=== PATIENT | male | born 1955 | race Caucasian/White ===

== ENCOUNTER 2016-07-14 06:33 | Day surgery (SDC) | payer BC ==
[2016-07-14] MEDS ORDERED: KETAMINE HCL* 50 MG/ML 10 ML VIAL ONE (07:21)
[2016-07-14] MEDS ORDERED: Lidocaine 2% PF * 5 ML VIAL ONE (07:21)
[2016-07-14] MEDS ORDERED: fentaNYL* 50 MCG/ML 2 ML VIAL (100 MCG VIAL) ONE (07:21)
[2016-07-14] MEDS ORDERED: Propofol* 10 MG/ML 20 ML BTL IV PUSH ONE (07:21)
[2016-07-14] MEDS ORDERED: Ketorolac INJ* 30 MG/ML 1 ML VIAL ONE (07:21)
[2016-07-14] MEDS ORDERED: Ondansetron INJ* 2 MG/ML VIAL ONE (07:21)
[2016-07-14] MEDS ORDERED: Dexamethasone IV* 4 MG/ML 1 ML (4 MG) ONE (07:21)
[2016-07-14] MEDS ORDERED: Midazolam* 1 MG/ML 5 ML VIAL (5 MG) ONE (07:21)
[2016-07-14] MEDS ORDERED: Iohexol 180 (CONTRAST) 10 ML SDV IV ONE (07:22)
[2016-07-14] MEDS ORDERED: Famotidine IV* 10 MG/ML 2 ML (20 mg) ONE (07:44)
[2016-07-14] MEDS ORDERED: Metoclopramide TAB* 10 MG ONE (07:44)
[2016-07-14] MEDS ORDERED: Metoclopramide TAB* 10 MG PO ONE (07:46)
[2016-07-14] MEDS ORDERED: Buffered Lidocaine 1% SYR 3ML* 3 ML/SYR SYRINGE INTRADERM ONE (07:46)
[2016-07-14] MEDS ORDERED: Famotidine IV* 10 MG/ML 2 ML (20 mg) IV ONE (07:46)
[2016-07-14] MEDS ORDERED: Levofloxacin 500 MG IVPREMIX(* 500 MG/100 ML BAG IVPB ONE (08:02)
[2016-07-14] MEDS ORDERED: Ondansetron INJ* 2 MG/ML VIAL IV PRN (09:00)
[2016-07-14] MEDS ORDERED: oxyCODONE/Acetamin 5/325 MG* TAB PO PRN (09:00)
[2016-07-14] MEDS ORDERED: HYDROmorphone INJ* 1 MG/ML CARPUJECT SYRINGE IV PRN (09:00)
[2016-07-14] MEDS ORDERED: fentaNYL* 50 MCG/ML 2 ML VIAL (100 MCG VIAL) IV PRN (09:00)
[2016-07-14 09:59] VITALS: BP 131/70
--- NOTE | 2016-07-14 15:26 | OP ---
CC: Rich Wright MD OPERATIVE REPORT: DATE OF OPERATION: 07/14/16 DATE OF : 57. SURGEON: Dr. Mccarthy. ANESTHESIOLOGIST: Dr. Fam Julio. ANESTHESIA: General. PRE-OP DIAGNOSES: 1. Proximal right ureteral calculus (1.2 cm). 2. Left renal calculi (2 x 8 mm each). POST-OP DIAGNOSES: 1. Proximal right ureteral calculus (1.2 cm). 2. Left renal calculi (2 X 8 mm each). OPERATIVE PROCEDURE: 1. Cystoscopy. 2. Left retrograde pyelography and placement of left ureteral stent. INDICATION FOR PROCEDURE: Mr. Breen is a 61-year-old white male who is a known stone former and who presented to the office for his follow-up routine visit. He had noted that for the last two days he has been having recurrent episodes of left- sided flank and abdominal pain. Renal ultrasound showed two 8 mm calculi in the left renal calyces, mild left hydronephrosis and 1.2 cm calculus just distal to the left ureteropelvic junction. KUB confirmed the presence of a 1.2 cm densely radio-opaque calculus in the area of the proximal left ureter and 2 left renal calculi in the mid and lower pole calyces each about 8 mm. Because of the above finding and the concern that the patient will have worsening hydronephrosis and more renal colics, the patient is having Lt stent placement in preparation for definitive treatment of the stone. PATHOLOGY AND CYSTOSCOPY: The penile and bulbar urethra looked normal. The prostatic urethra showed only mild enlargement and obstruction. Examination of the bladder showed normal bladder mucosa. There were no suspicious bladder lesions seen. No calculi or diverticula were noted. At fluoroscopy, the above described left renal and ureteral calculi were noted. The stone seems to be impacted. Rectal exam at the end of the procedure showed a non-enlarged and non- suspicious prostate. DESCRIPTION OF PROCEDURE: After successful general anesthesia, the patient was placed in the lithotomy position and was prepped and draped in the usual manner. Cystoscopy was performed. The above findings were noted. A flexible tip guidewire was then introduced into the left ureter orifice and after several attempts was successfully positioned in the area of the renal pelvis. A size #5 Kazakh open ended catheter was then fed on top of the wire and introduced past the stone. During this manipulation, the stone migrated into the renal pelvis. Retrograde pyelography was then performed. A size #6 Kazakh stent was then placed with the proximal end coiling in the renal pelvis and the distal end coiling inside the bladder. The bladder was then emptied and the cystoscope was removed. Rectal examination was performed. The patient tolerated the procedure well and left the operating room in good condition. The plan is to obtain a KUB as an outpatient and the decision will be made regarding the definitive treatment of the stone. [id number]/[facility] #: [id number] MTDD
[2016-07-16] MEDS ORDERED: Midazolam* 1 MG/ML 2 ML VIAL (2 MG) ONE (06:58)
[2016-07-16] MEDS ORDERED: fentaNYL* 50 MCG/ML 2 ML VIAL (100 MCG VIAL) ONE (06:58)
[2016-07-16] MEDS ORDERED: Ketorolac INJ* 30 MG/ML 1 ML VIAL ONE (07:21)
[2016-07-16] MEDS ORDERED: Ondansetron INJ* 2 MG/ML VIAL ONE (07:21)
[2016-07-16] MEDS ORDERED: Propofol* 10 MG/ML 20 ML BTL IV PUSH ONE (07:21)
[2016-07-16] MEDS ORDERED: Lidocaine 2% PF * 5 ML VIAL ONE (07:21)
[2016-07-16] MEDS ORDERED: HYDROmorphone INJ* 1 MG/ML CARPUJECT SYRINGE ONE (08:22)
== END 2016-07-14 10:10 | disposition home or self-care (01) ==
LOC: OR 06:33
PROVIDERS: ATTEND Urology
DX: N13.2 Hydronephrosis with renal and ureteral calculous obstruction (principal); Z72.0 Tobacco use; Z85.46 Personal history of malignant neoplasm of prostate
CPT/HCPCS: 74420; A9270-GY; C1876; J1100; J1885; J1956; J2250; J2405; J2704; J3010

== ENCOUNTER 2016-07-16 06:35 | Day surgery (SDC) | payer BC ==
[2016-07-16] MEDS ORDERED: cefTRIAXone(*) 2 GM ADDV.VIAL IVPB ONE (06:56)
[2016-07-16] MEDS ORDERED: Levofloxacin 500 MG IVPREMIX(* 500 MG/100 ML BAG IVPB ONE (07:35)
[2016-07-16] MEDS ORDERED: Scopolamine 1.5 mg* PATCH TRANSDERM PRN (07:36)
[2016-07-16] MEDS ORDERED: DiMENhydriNATE IV* 50 MG/ML VIAL IV PUSH PRN (07:36)
[2016-07-16] MEDS ORDERED: fentaNYL* 50 MCG/ML 2 ML VIAL (100 MCG VIAL) IV PRN (07:36)
[2016-07-16] MEDS ORDERED: PROCHLORPERAZINE INJ 5 MG/ML 2 ML VIAL IV PRN (07:36)
[2016-07-16] MEDS ORDERED: Ondansetron INJ* 2 MG/ML VIAL IV PRN (07:36)
[2016-07-16] MEDS ORDERED: Famotidine IV* 10 MG/ML 2 ML (20 mg) ONE (07:38)
[2016-07-16] MEDS ORDERED: Dexamethasone IV* 4 MG/ML 1 ML (4 MG) ONE (07:38)
[2016-07-16] MEDS ORDERED: Famotidine IV* 10 MG/ML 2 ML (20 mg) IV ONE (07:50)
[2016-07-16] MEDS ORDERED: Dexamethasone IV* 4 MG/ML 1 ML (4 MG) IV SLOW PU ONE (07:50)
[2016-07-16] MEDS ORDERED: Buffered Lidocaine 1% SYR 3ML* 3 ML/SYR SYRINGE INTRADERM ONE (07:50)
[2016-07-16 10:09] VITALS: BP 141/90
--- NOTE | 2016-07-17 00:36 | OP ---
DATE OF OPERATION: 07/16/16 [facility] DATE OF : 57 SURGEON: Mika Mccarthy MD ANESTHESIOLOGIST: Roldan Meyer MD ANESTHESIA: General PRE-OP DIAGNOSES: 1. Left renal calculi. 2. Status post placement left ureteral stent. POST-OP DIAGNOSES: 1. Left renal calculi. 2. Status post placement left ureteral stent. OPERATIVE PROCEDURE: Shock wave lithotripsy of left renal calculus (1.2 cm). INDICATIONS: Mr. Breen is a 61-year-old white male who is a known stone former and who presented to the office 3 days ago with mild left flank pain. Workup showed a 1.2-cm radiopaque calculus in the proximal left ureter and two non- obstructing left renal calculi measuring about 7 mm each in the mid and lower pole calyces. The patient had urgent placement of a left ureteral stent 2 days ago. Postoperative imaging showed that the larger stone has migrated into the renal pelvis. The patient is now admitted for shock wave lithotripsy of the calculus in the left renal pelvis. PATHOLOGY: Fluoroscopy on the operating room table confirmed the proper positioning of the stent and the radiopaque calculus in the renal pelvis. Two smaller calcifications were noted in the calyces. DESCRIPTION OF PROCEDURE: After successful general anesthesia, the patient was placed in the supine position on the shock wave lithotripsy table. The calculus in the left renal pelvis was visualized in both the PA and oblique x- ray views and position of the patient and generator were adjusted to have the stone in the focus of the shock waves. A total of 2,400 shocks were then delivered at a rate of 90 shocks per minute. A 3- minute break was taken after the initial 200 shocks. The proper positioning and fragmentation of the stone were monitored periodically. At the completion of the treatment, there seemed to be good fragmentation of the stone. The patient tolerated the procedure well and left the operating room in good condition. The plan is to see the patient later on this week with followup KUB and decision will be made regarding the management of the residual stone fragments. CC: Dr. Wright* [id number]/[facility] #: [id number] MTDD
[2016-07-19] MEDS ORDERED: Scopolamine PATCH Remove* 1 NOTE MISC PATCH OFF ONE (07:36)
== END 2016-07-16 10:46 | disposition home or self-care (01) ==
LOC: OR 06:35
PROVIDERS: ATTEND Urology
DX: N13.2 Hydronephrosis with renal and ureteral calculous obstruction (principal); Z85.46 Personal history of malignant neoplasm of prostate; F17.200 Nicotine dependence, unspecified, uncomplicated
CPT/HCPCS: J0696; J1100; J1170; J1885; J1956; J2250; J2405; J2704; J3010

== ENCOUNTER 2016-11-05 10:03 | Day surgery (SDC) | payer BC ==
--- NOTE | 2016-11-02 09:33 | HP ---
CC: Rich Wright MD * ADMISSION HISTORY AND PHYSICAL: DATE OF ADMISSION: 11/05/16 ADMITTING DIAGNOSES: 1. Left renal calculi. 2. Hematuria. PLANNED PROCEDURE: Left ureteral stent insertion and shockwave lithotripsy of left renal calculi. SURGEON: Dr. Campbell. ADMITTING HISTORY AND PHYSICAL: Turner Breen is a 61-year-old gentleman with a history of recurrent renal calculi. He was recently evaluated and noted to have a 1.6 cm calculus in the renal pelvis of the left kidney with additional 1 cm, 1.1 cm, and 8 mm calculi in the lower pole. He is being brought in for left stent insertion and shockwave lithotripsy. PAST MEDICAL HISTORY: Significant for: 1. Recurrent renal calculi. 2. Prostate cancer, status post radical prostatectomy in 2014 with no recurrence. MEDICATIONS ON ADMISSION: None. ALLERGIES: No known drug allergies. REVIEW OF SYSTEMS: He is otherwise in excellent overall health. There is no history of diabetes mellitus or any other major systemic illness. He denies any chest pain or shortness of breath. PHYSICAL EXAMINATION GENERAL: Revealed a pleasant, healthy-appearing, middle-aged gentleman. VITAL SIGNS: Blood pressure is 124/62, pulse 78 per minute and regular, oxygen saturation 96% on room air. CARDIOVASCULAR: Regular rate and rhythm. S1, S2. LUNGS: Clear bilaterally. ABDOMEN: Soft with mild left flank tenderness. IMPRESSION: A 61-year-old gentleman with multiple left renal calculi including a 1.6 cm calculus in the left renal pelvis. I have discussed the procedure in detail including possible risks of bleeding, infection, incomplete fragmentation and possible injury to the kidney. PLAN: Left stent insertion and shockwave lithotripsy of left renal calculi. [id number]/[facility] #: [id number] MTDD
[~2016-11-05 10:03] MED LIST: Buffered Lidocaine 0.9% SYRIN* 5 ML/SYR SYRINGE INTRADERM ONE; Sodium Citrate/Citric Acid* 15 ML UDC PO ONE
[2016-11-05] MEDS ORDERED: Buffered Lidocaine 0.9% SYRIN* 5 ML/SYR SYRINGE ONE (10:13)
[2016-11-05] MEDS ORDERED: cefTRIAXone(*) 2 GM ADDV.VIAL IVPB ONE (10:13)
[2016-11-05] MEDS ORDERED: Sodium Citrate/Citric Acid* 15 ML UDC ONE (10:13)
[2016-11-05] MEDS ORDERED: Iohexol 180 (CONTRAST) 10 ML SDV IV ONE (10:50)
--- NOTE | 2016-11-05 10:53 | RAD ---
INDICATION: Left-sided lithotripsy COMPARISON: Most recent comparison radiograph is dated July 26, 2016 TECHNIQUE: 2 views the abdomen were obtained. FINDINGS: Overlying the left collecting system is a 1 cm lobular calcification that may correspond to a similar located calcification also measuring 1 cm on the previous radiograph. At least 3 additional subcentimeter calcifications are noted overlying the left abdomen. There are no large calcifications overlying the expected location of the left ureter. IMPRESSION: CALCIFICATIONS OVERLYING THE LEFT RENAL COLLECTING SYSTEM DESCRIBED ABOVE.
[2016-11-05] MEDS ORDERED: Lidocaine 2% PF * 5 ML VIAL ONE (11:43)
[2016-11-05] MEDS ORDERED: Propofol* 10 MG/ML 20 ML BTL IV PUSH ONE (11:43)
[2016-11-05] MEDS ORDERED: fentaNYL* 50 MCG/ML 2 ML VIAL (100 MCG VIAL) ONE (11:43)
[2016-11-05] MEDS ORDERED: Furosemide IV* 10 MG/ML 2 ML VIAL (20 MG) ONE (11:54)
[2016-11-05] MEDS ORDERED: EPHEDrine (Pressors)* 50 MG/ML VIAL ONE (12:09)
[2016-11-05] MEDS ORDERED: Ketorolac INJ* 30 MG/ML 1 ML VIAL IV PRN (12:11)
[2016-11-05] MEDS ORDERED: fentaNYL* 50 MCG/ML 2 ML VIAL (100 MCG VIAL) IV PRN (12:11)
[2016-11-05] MEDS ORDERED: Ondansetron INJ* 2 MG/ML VIAL IV PRN (12:11)
[2016-11-05 14:29] VITALS: BP 137/88
--- NOTE | 2016-11-05 15:02 | RAD ---
Indication: Post LEFT stent placement. Urolithiasis. Comparison: 1024 hours November 05, 2016 Technique: Supine view of the abdomen. Report: Unremarkable bowel gas pattern. Moderate stool in the colon without rectal distension. Multiple LEFT renal stones at the mid to lower pole calyces and at the level of the renal pelvis with dominant 0.7 cm stone at the renal pelvis. No suspicious calcifications evident along the ureteral segment of the newly placed LEFT ureteral stent. Unremarkable soft tissue contours. IMPRESSION: LEFT ureteral stent in place. Multiple LEFT renal stones.
--- NOTE | 2016-11-06 08:57 | OP ---
CC: Rich Wright MD * DATE OF OPERATION: 11/05/16 - [facility] DATE OF : 57 - AGE/SEX: 61 years/male. SURGEON: Jose Alfredo Campbell MD ANESTHESIOLOGIST: Dr. Alcaraz. ANESTHESIA: General. PRE-OP DIAGNOSES: 1. Left renal calculi. 2. Hematuria. POST-OP DIAGNOSES: 1. Left renal calculi. 2. Hematuria. OPERATIVE PROCEDURE: 1. Shockwave lithotripsy of left renal calculi. 2. Cystoscopy, left retrograde and left stent insertion. COMPLICATIONS: None. STENT USED: 7-Hungarian stent, left ureter. OPERATIVE FINDINGS: Large calculus, left renal pelvis with additional smaller left renal calculi. POSTOPERATIVE CONDITION: Stable. INDICATIONS: Turner Breen is a 61-year-old gentleman with a history of recurrent renal calculi. He was recently evaluated and noted to have a 1.6 cm calculus in the left renal pelvis along with hematuria. In addition, he has multiple smaller left renal calculi. He is being brought in for shockwave lithotripsy and left stent insertion. DESCRIPTION OF PROCEDURE: After induction of general anesthesia, the patient was placed on the lithotripsy table in supine position. The dominant calculus in the left renal pelvis was localized using fluoroscopy. Shockwave lithotripsy was commenced at a rate of 60 shocks per minute. After the initial 300 shocks, there was a pause in lithotripsy for several minutes in an effort to minimize any potential trauma to the kidney. Lithotripsy was then resumed and a total of 2400 shocks were administered. Next, the patient was placed in dorsal lithotomy position. Cystoscopy was performed. The urethra was normal. The patient is status post radical prostatectomy. The bladder was examined and was unremarkable. Left retrograde pyelogram revealed mild fullness of the left collecting system and a 7-Hungarian stent was introduced and positioned under fluoroscopy with good proximal and distal positioning obtained. My plan is to obtain a postoperative x-ray to assess the true degree of fragmentation and this will be arranged prior to discharge. The patient tolerated the procedure satisfactorily and was transferred back to recovery area in stable condition. [id number]/[facility] #: [id number] MTDD
== END 2016-11-05 14:35 | disposition home or self-care (01) ==
LOC: OR 10:03
PROVIDERS: ATTEND Urology
DX: N20.0 Calculus of kidney (principal); R31.9 Hematuria, unspecified; Z90.79 Acquired absence of other genital organ(s); Z85.46 Personal history of malignant neoplasm of prostate
CPT/HCPCS: 74000; A9270-GY; C1876; J0696; J1580; J1940; J2704; J3010

== ENCOUNTER 2016-12-07 14:11 | Day surgery (SDC) | payer BC ==
[~2016-12-07 14:11] MED LIST changes: +Buffered Lidocaine 0.9% SYRIN* 5 ML/SYR SYRINGE ONE; +Famotidine IV* 10 MG/ML 2 ML (20 mg) IV ONE; +Famotidine IV* 10 MG/ML 2 ML (20 mg) ONE; +Morphine INJ* 2 MG/ML 1 ML SYRINGE IV PRN; -Sodium Citrate/Citric Acid* 15 ML UDC PO ONE; +fentaNYL* 50 MCG/ML 2 ML VIAL (100 MCG VIAL) IV PRN; +fentaNYL* 50 MCG/ML 2 ML VIAL (100 MCG VIAL) ONE; +oxyCODONE/Acetamin 5/325 MG* TAB PO PRN
[2016-12-07] MEDS ORDERED: KETAMINE HCL* 50 MG/ML 10 ML VIAL ONE (14:12)
[2016-12-07] MEDS ORDERED: Midazolam* 1 MG/ML 5 ML VIAL (5 MG) ONE (14:12)
[2016-12-07] MEDS ORDERED: Iohexol 180 (CONTRAST) 10 ML SDV IV ONE (14:16)
[2016-12-07] MEDS ORDERED: cefTRIAXone(*) 2 GM ADDV.VIAL IVPB ONE (14:17)
[2016-12-07 14:41] VITALS: BP 161/92
[2016-12-07] MEDS ORDERED: Norepinephrine 16MCG/ML IVPRE* (4 MG/250 ML) IV ONE (15:39)
--- NOTE | 2016-12-07 17:36 | PN ---
Progress Note - Progress Note Date of Service: 12/07/16 Note: Responded to rapid response team in PACU. Upon arrival to PACU pt was being transported from OR to PACU room 14 with anesthesiologist by the bedside.It was reported that pt lost consciousness after administration of Versed 4 mg IV . Once in room 14 pt was noted to have no pulse. CPR was started and epi was administered. Pt was intubated by anesthesia with good 02 sat response. On telem pt was in PEA with narrow complex tachycardia. ACLS protocol was implemented with several rounds of Iv Epi. Calcium and Mg was administered. IO was placed and later on placed a R femoral central venous cath. Cardiology was called, and bedside Echo seen by Dr. Omer showed ventricular standstill. At some point pt was noted to be in V. fib and shock was administered with no results. Telem strip reviewed with cardiology showed heart block and possible STEMI. We were unable to get the pulse back and repeat Echo showed no cardiac contractions. Pt was pronounced after over 30 min of resuscitation.
--- NOTE | 2016-12-08 07:00 | CONS ---
H&P and CONSULTATION NOTE: Short Form H&P filled up on admission. DATE OF CONSULT: 12/07/16 HISTORY OF PRESENT ILLNESS: Mr. Breen is a 61-year-old white male who has been followed in our office by Dr. Campbell since April 2014 because of history of recurrent renal calculi and history of prostate carcinoma. My Jamshid was diagnosed with prostate carcinoma in June 2014. He was noted to have left renal calculi and underwent shockwave lithotripsy calculus in July 2014. Following the shockwave lithotripsy and because stone fragments had migrated into the ureter, he underwent a left ureteroscopy and laser lithotripsy. During that procedure which was done under spinal anesthesia, he had an episode of hypotension and hypoxemia, from which he recovered. He was admitted post-op to the ICU for observation and had a work-up by the rail track layer. His work up was negative (nl EKG, Normal troponins, normal cardiac monitoring). He was discharged home in normal condition. On 09/07/2014, he underwent an uncomplicated robotic radical prostatectomy at the [facility] in [place] by Dr Kameron Curran. No intraoperative events noted, and he had a smooth post op course. His pathology was [place] 7, Stage T3b with positive seminal vesicle. He was followed with periodic PSAs. The last one was done on 07/06/16 and had a PSA of 0.02. On 07/14/16, he presented with Lt renal colic and was noted to have an obstructing calculus in the proximal Lt ureter. He had urgent placement of left ureteral stent. On 07/16/16, he underwent shockwave lithotripsy of the left renal calculus The intraoperative and post operative courses during both procedures were smooth. The stent was removed in the office under local anesthesia on 07/23/16. On 11/05/16, because of residual Lt renal calculi, he had a cystoscopy, placement of left ureteral stent and shockwave lithotripsy of left renal calculi. He tolerated the procedure very well and the stent was removed in the office on 11/22/16. He was doing well until last night when he started having symptoms of left renal colic complaining of left flank pain radiating to the left lower quadrant. This was associated with some nausea and vomiting. He did not have any fever or chills. He called the office this morning at 9:15 and was worked in for evaluation. He was seen today in the office. His vital signs at 11:15 a.m. were normal with a blood pressure of 130/80, temperature of 98.2, regular pulse at 84, and oxygen saturation of 95%. His physical exam showed left flank tenderness and left upper quadrant tenderness. His symptoms and exam were consistent with left renal colic. He had no other complaints of chest pain, shortness of breath, or dizziness. His Urine analysis showed Trace blood, was negative for esterase & nitrite. The patient had a renal ultrasound in the office in my presence. The study showed moderate left hydronephrosis, a 7 mm calculus in the lower pole calyx of the left kidney, and 9 mm echogenic foci in the proximal ureter at the site of the obstruction about 5 cm distal to the ureteropelvic junction. Because of that finding and to further check the size and location of the calculi, he was sent to the x-ray department at [facility], where he had a KUB. The KUB was reviewed and it showed a 7 mm calculus in the area of the proximal left ureter corresponding to the stone seen on the ultrasound. Patient was seen back in the office after the KUB was done. I discussed the findings with him, namely that the size of the ureteral calculus and its location make it unlikely that it will pass spontaneously, and considering his recurrent episodes of Lt flank pain, I recommended left ureteroscopy, laser lithotripsy and left ureteral stent placement. I discussed the procedure in detail with the patient. He had a physical exam in my office including examination of the heart, which showed no murmur and no irregular heart rate. His lungs were clear. His vital signs as mentioned earlier were all within normal. The only positive finding on his physical exam was the Lt flank tenderness. tenderness. He reported no changes in his general health since he had his last anesthesia and procedure 1 month ago. He denied having any allergies to medications. His only medication is Celebrex 100 mg bid. He was sent to the same-day surgery unit and left the office around 1:40 PM. He was admitted by the nursing staff and the records of his admission and his vital signs are in the Hospital records I came to see him in the pre-op unit around 3 p.m. He looked fine, and he did not complain of any symptoms besides his left flank discomfort. He had a good color, and his vital signs recorded by the nursing staff were all normal. I again discussed the planned procedure and its indications with him, and answered his questions regarding the procedure and follow-up. I then obtained the operative consent and put a bracelet in his left wrist to confirm the laterality of the procedure. Dr. Gifford, the anesthesiologist, had seen the patient and evaluated him. Patient was started on IV Rocephin as pre-op antibiotic prophylaxis. Patient had received IV Rocephin this year on 07/16/2016 and on 11/05/2016 as antibiotic prophylaxis for his recent urological procedures, and no reaction was noted. Patient was then wheeled to the OR by Dr Gifford. As I was getting ready to join him in the OR, the OR team called back that they were bringing the patient back to the PACU urgently because of what seemed like a cardiac arrest and the resuscitation team was called. The details of the resuscitations are included by the medical team and the anesthesiologist. In spite of very active resuscitation efforts, he never recovered and he was pronounced at 4:04 p.m. While the resuscitation was proceeding, I reached his son on his cellphone and told him to come promptly to the hospital because of a serious event to his father. Looking back at his visit to my office, the patient had no signs to suggest a cardiac or other serious medical conditions. He had driven himself to my office and drove back & forth to the hospital for his X-Ray and then for his admission. He did not mention any changes in his health. All his complaints in the office were related to his left renal colic, his left flank pain with associated nausea. At no point did he report having pain above the left flank, in his chest, in his jaw or in his arm. He complained of no dizziness, shortness of breath, or neuro symptoms His color was good. His vital signs in the office were all normal. He was started on Rocephin IV pre-op, however he had received the same dose twice this year, in June and again one month ago without any untoward effects. Discussing the events with Dr. Andrews, his anesthesiologist, the patient apparently was talking normally with him while he was being wheeled from the PACU to the operating room. He arrested as he was being placed on the OR table and before the anesthesia was initiated. The events of the arrest and the details of the resuscitation are documented by the medical teams. Following his , I had a long discussion with his family and the permit for autopsy was obtained from his sister and from his son. [id number]/[facility] #: [id number] MARISELA
== END 2016-12-07 16:04 | disposition expired ==
LOC: OR 14:11
PROVIDERS: ATTEND Urology
DX: N13.2 Hydronephrosis with renal and ureteral calculous obstruction (principal); I46.9 Cardiac arrest, cause unspecified; Z85.46 Personal history of malignant neoplasm of prostate; I65.29 Occlusion and stenosis of unspecified carotid artery; F17.200 Nicotine dependence, unspecified, uncomplicated
CPT/HCPCS: 92950; 93308; J0696; J2250; J3010